=== PATIENT | female | born 1990 | race Caucasian/White ===

== ENCOUNTER 2022-02-27 11:01 | Observation (INO) | payer BC ==
[~2022-02-27] VITALS: Ht 172.7 cm; Wt 87.7 kg
[2022-02-27 12:12] LABS: BASO # 0.1 K/mm3 (0.0-0.2); BASO % 0.4 % (0.0-2.0); EOS # 0.1 K/mm3 (0.0-0.7); EOS % 0.5 % (0.0-4.0); GRAN % 75.6 % (42.2-75.2); HEMATOCRIT 38.2 % (37.0-47.0); HEMOGLOBIN 12.8 g/dl (12.5-16.0); LYMPH # 2.6 K/mm3 (1.2-3.4); LYMPH % 17.5 % (20.0-51.0); MEAN CELL VOLUME 96 fl (80.0-100.0); MEAN CORPUSCULAR HEMOGLOBIN 32 pg (27-31); MEAN CORPUSCULAR HGB CONC 34 g/dl (33.0-37.0); MEAN PLATELET VOLUME 10.4 fl (7.4-10.4); MONO # 0.8 K/mm3 (0.1-0.6); MONO % 5.4 % (1.7-9.3); PLATELET COUNT 202 K/mm3 (130-400); REDCELL DISTRIBUTION WIDTH-CV 12.4 % (11.5-14.5)
[2022-02-27 12:31] LABS: ALBUMIN 3.2 gm/dL (3.5-5.0); BILIRUBIN,TOTAL 0.2 mg/dL (0.2-1.2); C-REACTIVE PROTEIN 0.24 mg/dL (0.00-0.50); CALCIUM 9.3 mg/dL (8.4-10.2); CREATININE, serum 0.82 mg/dL (0.57-1.11); POTASSIUM 3.6 mmol/L (3.5-4.5); TOTAL PROTEIN 6.9 gm/dL (6.2-8.1)
[2022-02-27 13:16] LABS: COLLECTION METHOD CLEAN CATCH
[2022-02-27 13:39] LABS: URINE APPEARANCE Clear (CLEAR/HAZY); URINE BLOOD TRACE-INTACT (NEGATIVE); URINE COLOR Yellow (YELLOW); URINE GLUCOSE Negative (NEGATIVE); URINE KETONE Negative (NEGATIVE); URINE NITRATE Negative (NEGATIVE); URINE PROTEIN(semi-quant) Negative (NEGATIVE); URINE UROBILINOGEN 0.2 E.U/dL (0.2-1.0)
[2022-02-27 13:48] LABS: MUCOUS Present (NOT PRESENT); SQUAMOUS EPITHELIAL 0-2 /hpf (0-10); URINE BACTERIA Rare /hpf (NONE SEEN)
[2022-02-27 16:30] VITALS: BP 101/66; PULSE 77; TEMP 97.7
--- NOTE | 2022-02-27 17:15 | NUR ---
SVE BY DR BELL CLOSED/THICK\HIGH. DR BELL AND THIS RN AT PT'S BEDSIDE. DR BELL DISCUSSING PLAN OF CARE.
[2022-02-27 20:15] VITALS: BP 108/67; PULSE 78; TEMP 98.2
[2022-02-28] VITALS (10 sets, daily range): BP systolic 101–111; BP diastolic 61–70; PULSE 80–89; TEMP 98.2–98.7
--- NOTE | 2022-02-28 08:00 | NUR ---
FHR doppler done with EFM prior to surgery. Baby 1 of 2 145 bpm. Baby 2 of 2 155 bpm. Plan of care for NST to be done after surgery was reviewed with pt. Pt verbalized an understanding and agreed with the plan.
--- NOTE | 2022-02-28 08:00 | NUR ---
Dr. Francis on the unit and at the bedside discussing surgery with pt. Also states from his standpoint, pt should be able to go home this afternoon after surgery.
--- NOTE | 2022-02-28 08:45 | NUR ---
Pt off the unit to the main OR.
--- NOTE | 2022-02-28 10:50 | NUR ---
Pt back on unit from OR. Report received. Vital signs WNL. Plan of care reviewed with pt and at the bedside. Call light within reach.
== END 2022-02-28 14:30 | disposition home or self-care (01) ==
LOC: COL.ER 11:01 → OB 14:50
PROVIDERS: Nurse Practitioner; ADMIT Obstetrics & Gynecology
DX: O99.891 Other specified diseases and conditions complicating pregnancy (principal); N13.2 Hydronephrosis with renal and ureteral calculous obstruction; O99.282 Endocrine, nutritional and metabolic diseases complicating pregnancy, second trimester; E03.9 Hypothyroidism, unspecified; Z3A.25 25 weeks gestation of pregnancy; O30.042 Twin pregnancy, dichorionic/diamniotic, second trimester; Z79.890 Hormone replacement therapy
CPT/HCPCS: C1769; G0378; J0330; J0690; J1100; J1170; J2370; J2405; J2550; J2704; J3010; J7030; J7120; Q9966

== ENCOUNTER 2022-03-03 06:32 | Emergency (ER) | payer BC ==
[~2022-03-03] VITALS: Ht 172.7 cm; Wt 87.7 kg
[2022-03-03 06:44] VITALS: TEMP 97.7
[2022-03-03 06:48] LABS: COLLECTION METHOD CLEAN CATCH
[2022-03-03 07:05] LABS: PH 8.5 (5.0-8.5); URINE APPEARANCE Clear (CLEAR/HAZY); URINE COLOR Yellow (YELLOW); URINE GLUCOSE Negative (NEGATIVE); URINE KETONE Negative (NEGATIVE); URINE NITRATE Negative (NEGATIVE); URINE PROTEIN(semi-quant) 2+ (NEGATIVE); URINE UROBILINOGEN 0.2 E.U/dL (0.2-1.0)
[2022-03-03 07:06] LABS: URINE BLOOD 2+ (NEGATIVE)
[2022-03-03 07:08] LABS: MUCOUS Present (NOT PRESENT); URINE BACTERIA Occasional /hpf (NONE SEEN); URINE RBC 20-50 /hpf (0-2)
[2022-03-03 07:33] LABS: BASO # 0.1 K/mm3 (0.0-0.2); BASO % 0.4 % (0.0-2.0); EOS # 0.2 K/mm3 (0.0-0.7); EOS % 1.6 % (0.0-4.0); GRAN # 9.6 K/mm3 (1.4-6.5); GRAN % 72.2 % (42.2-75.2); HEMOGLOBIN 12.9 g/dl (12.5-16.0); LYMPH # 2.6 K/mm3 (1.2-3.4); LYMPH % 19.2 % (20.0-51.0); MEAN CELL VOLUME 93 fl (80.0-100.0); MEAN CORPUSCULAR HEMOGLOBIN 32 pg (27-31); MEAN CORPUSCULAR HGB CONC 35 g/dl (33.0-37.0); MEAN PLATELET VOLUME 10.9 fl (7.4-10.4); MONO # 0.8 K/mm3 (0.1-0.6); MONO % 6.1 % (1.7-9.3); PLATELET COUNT 206 K/mm3 (130-400); RED BLOOD COUNT 3.98 M/mm3 (4.10-5.30); REDCELL DISTRIBUTION WIDTH-CV 12.3 % (11.5-14.5)
[2022-03-03 07:38] LABS: ALBUMIN 2.9 gm/dL (3.5-5.0); BILIRUBIN,TOTAL 0.2 mg/dL (0.2-1.2); CALCIUM 9.8 mg/dL (8.4-10.2); CREATININE, serum 0.79 mg/dL (0.57-1.11); HEMATOCRIT 36.9 % (37.0-47.0); POTASSIUM 3.5 mmol/L (3.5-4.5); TOTAL PROTEIN 6.7 gm/dL (6.2-8.1)
[2022-03-03] MEDS ORDERED: ZOFRAN ODT4 MG PO (09:10)
[2022-03-03] MEDS ORDERED: PERCOCET 325 MG1 TA2 PO (09:10)
[2022-03-03 09:30] VITALS: BP 109/74; PULSE 75
== END 2022-03-03 09:35 | disposition home or self-care (01) ==
LOC: COL.ER 06:32
PROVIDERS: Emergency Medicine; Personal Emergency Response Attendant
DX: O30.002 Twin pregnancy, unspecified number of placenta and unspecified number of amniotic sacs, second trimester (principal); R10.9 Unspecified abdominal pain; Z28.310 Unvaccinated for COVID-19; Z3A.25 25 weeks gestation of pregnancy